=== PATIENT | female | born 1960 | race Caucasian/White ===

== ENCOUNTER 2016-09-11 10:50 | Day surgery (SDC) | payer OTHER ==
[~2016-09-11 10:50] MED LIST: ATORVASTATIN CA20 M1 PO; BIRTH CONTROL PILL; NEXIUM40 M1 PO; OMEPRAZOLE20 M3 PO
== END 2016-09-11 14:03 ==
LOC: SHSB 10:50 → ENDOS 12:45
PROC: 0DB98ZX Excision of Duodenum, Via Natural or Artificial Opening Endoscopic, Diagnostic (ICD-10-PCS; principal; 2016-09-11)
DX: K22.5 Diverticulum of esophagus, acquired (principal); K44.9 Diaphragmatic hernia without obstruction or gangrene; K21.9 Gastro-esophageal reflux disease without esophagitis; Z79.3 Long term (current) use of hormonal contraceptives; Z79.899 Other long term (current) drug therapy; Z88.8 Allergy status to other drugs, medicaments and biological substances